=== PATIENT | female | born 1950 | race Caucasian/White ===

== ENCOUNTER 2022-01-30 10:54 | Inpatient (IN) ==
[~2022-01-30 10:54] MED LIST: Naloxone 0.4 MG/ML INJ IVP PRN
[2022-01-30] MEDS ORDERED: Ondansetron 4 MG/2 ML VIAL IVP PRN ×2 (11:16→15:19)
[2022-01-30] MEDS ORDERED: *HR* HYDROmorphone PF 0.5 MG/0.5 ML SYRINGE IVP PRN (11:16)
[2022-01-30] MEDS ORDERED: *HR* FentaNYL (PF) 100 MCG/2 ML VIAL IVP PRN (11:16)
[2022-01-30] MEDS ORDERED: Clindamycin 900 MG/50 ML 900 MG/50 ML IV.SOLN IVPB ONE (11:37)
[2022-01-30] MEDS ORDERED: Ringers Solution, Lactated 1,000 ML IVC SCH ×2 (11:45→15:19)
[2022-01-30] MEDS ORDERED: *HR* Rocuronium Bromide 50 MG/5 ML VIAL ONE (12:29)
[2022-01-30] MEDS ORDERED: *HR* FentaNYL (PF) 100 MCG/2 ML VIAL ONE (12:29)
[2022-01-30] MEDS ORDERED: Ondansetron 4 MG/2 ML VIAL ONE (12:29)
[2022-01-30] MEDS ORDERED: Lidocaine -MPF 2% 2 ML VIAL ONE (12:29)
[2022-01-30] MEDS ORDERED: *HR* Propofol 200 MG/20 ML VIAL IVP ONE (12:30)
[2022-01-30] MEDS ORDERED: Lidocaine HCL 4 ML Topical Solution (Laryng-O-Jet Kit Sterile Pak) TP ONE (12:33)
[2022-01-30] MEDS ORDERED: Ketamine HCL *QUVA* 50mg (1mL) SYRINGE ONE (12:38)
[2022-01-30] MEDS ORDERED: *HR* Metoprolol 5 MG/5 ML VIAL IVP PRN (15:19)
[2022-01-30] MEDS ORDERED: Scopolamine Patch 1.5 MG PATCH.TD72 TD ONE (15:19)
[2022-01-30] MEDS ORDERED: Naloxone 0.4 MG/ML INJ IVP PRN (15:19)
[2022-01-30] MEDS: 0.9 % Sodium Chloride 1,000 ML IVC SCH (16:35)
[2022-01-30] MEDS: Acetaminophen IV 1,000 MG/100 ML BAG IVPB SCH (18:06)
[2022-01-31] MEDS: Acetaminophen IV 1,000 MG/100 ML BAG IVPB SCH ×3 (00:55→13:08)
[2022-01-31 02:23] LABS: Basophils % 0.1 %; Hematocrit 40.2 % (35.3-44.9); Immature Granulocytes % 0.6 % (0-4); Lymphocytes # 0.6 K/mcL (0.6-4.6); Mean Corpuscular HGB Conc 32.3 g/dL (31.6-35.5); Mean Corpuscular Hemoglobin 28.9 pg (28.0-33.3); Mean Corpuscular Volume 89.3 fL (83.0-100.0); Mean Platelet Volume 9.2 fL (9.4-12.4); Monocytes # 0.4 K/mcL (0.0-1.3); Monocytes % 4.6 %; Neutrophils # 7.1 K/mcL (1.6-8.9); Platelet Count 278 K/mcL (140-400); Red Cell Distribution Width 13.1 % (11.5-14.5); Segmented Neutrophils % 87.7 %; White Blood Count 8.1 K/mcL (4.3-11.1)
[2022-01-31 02:38] LABS: BUN/Creatinine Ratio 11 (6-26); Blood Urea Nitrogen 10 mg/dL (8-23); Carbon Dioxide 25 mEq/L (23-29); Chloride 107 mEq/L (98-107); Glucose 129 mg/dL (70-105); Magnesium 1.9 mg/dL (1.6-2.6); Osmolality,Calculated 289 (280-300); Phosphorous 3.5 mg/dL (2.7-4.5); Sodium 139 mEq/L (136-145); eGFR For African Americans > 60 (> 60); eGFR For Non-African Americans > 60 (> 60)
[2022-01-31] MEDS: 0.9 % Sodium Chloride 1,000 ML IVC SCH ×3 (06:08→17:19)
[2022-01-31] MEDS: Pantoprazole 40 MG VIAL IVP SCH (08:07)
[2022-01-31] MEDS ORDERED: Acetaminophen IV 1,000 MG/100 ML BAG IVPB PRN (12:37)
[2022-01-31] MEDS: Gabapentin 300 MG CAPSULE PO SCH ×2 (15:46→21:52)
[2022-01-31] MEDS: *HR* Heparin 5,000 UNIT/ML VIAL SQ SCH (17:37)
[2022-02-01] MEDS: 0.9 % Sodium Chloride 1,000 ML IVC SCH (03:41)
[2022-02-01 05:10] LABS: Basophils # 0.1 K/mcL (0.0-0.2); Eosinophils # 0.1 K/mcL (0.0-0.6); Eosinophils % 1.7 %; Hematocrit 40.3 % (35.3-44.9); Hemoglobin 12.7 g/dL (11.5-15.4); Immature Granulocytes % 0.5 % (0-4); Lymphocytes # 2.5 K/mcL (0.6-4.6); Lymphocytes % 32.3 %; Mean Corpuscular HGB Conc 31.5 g/dL (31.6-35.5); Mean Corpuscular Hemoglobin 29.3 pg (28.0-33.3); Mean Corpuscular Volume 92.9 fL (83.0-100.0); Mean Platelet Volume 9.3 fL (9.4-12.4); Monocytes # 0.7 K/mcL (0.0-1.3); Monocytes % 8.6 %; Neutrophils # 4.4 K/mcL (1.6-8.9); Platelet Count 259 K/mcL (140-400); Red Blood Count 4.34 M/mcL (3.82-4.97); Red Cell Distribution Width 13.2 % (11.5-14.5); Segmented Neutrophils % 55.9 %; White Blood Count 7.8 K/mcL (4.3-11.1)
[2022-02-01 05:16] LABS: Prothrombin Time 11.3 Seconds (9.4-12.1)
[2022-02-01] MEDS: *HR* Heparin 5,000 UNIT/ML VIAL SQ SCH ×2 (05:23→20:50)
[2022-02-01 05:35] LABS: BUN/Creatinine Ratio 11 (6-26); Blood Urea Nitrogen 10 mg/dL (8-23); Calcium 8.9 mg/dL (8.6-10.3); Carbon Dioxide 26 mEq/L (23-29); Chloride 107 mEq/L (98-107); Glucose 86 mg/dL (70-105); Magnesium 1.9 mg/dL (1.6-2.6); Osmolality,Calculated 286 (280-300); Phosphorous 2.5 mg/dL (2.7-4.5); Potassium 3.3 mEq/L (3.5-5.1); Sodium 139 mEq/L (136-145); eGFR For African Americans > 60 (> 60); eGFR For Non-African Americans > 60 (> 60)
[2022-02-01] MEDS: Pantoprazole 40 MG VIAL IVP SCH (08:34)
[2022-02-01] MEDS: Gabapentin 300 MG CAPSULE PO SCH ×2 (08:34→17:15)
[2022-02-01] MEDS ORDERED: Potassium Phosphate 44 MEQ in 0.9 % Sodium Chloride 250 ML IVPB ONE (08:57)
[2022-02-01] MEDS: D5% in 0.45% NACL w KCl 20 MEQ/1,000 ML MLS IVC SCH ×2 (09:32→20:50)
[2022-02-01] MEDS ORDERED: Lidocaine -MPF 2% 2 ML VIAL ONE (14:03)
[2022-02-01] MEDS ORDERED: *HR* Propofol 200 MG/20 ML VIAL IVP ONE (14:03)
[2022-02-01] MEDS ORDERED: *HR* FentaNYL (PF) 100 MCG/2 ML VIAL ONE ×2 (14:03→16:09)
[2022-02-01] MEDS ORDERED: *HR* Rocuronium Bromide 50 MG/5 ML VIAL ONE (14:03)
[2022-02-01] MEDS ORDERED: *HR* Succinylcholine 200 MG/10 ML VIAL IVP ONE (14:25)
[2022-02-01] MEDS ORDERED: *HR* Midazolam HCl 2 MG/2 ML VIAL ONE (15:20)
[2022-02-01] MEDS ORDERED: Ondansetron 4 MG/2 ML VIAL ONE (15:42)
[2022-02-01] MEDS ORDERED: Clindamycin 900 MG/50 ML 900 MG/50 ML IV.SOLN IVPB ONE ×2 (15:48→15:55)
[2022-02-01] MEDS ORDERED: *HR* HYDROMORPHONE 2 MG/ML VIAL ONE (16:07)
[2022-02-01] MEDS ORDERED: Famotidine 20 MG/2 ML VIAL ONE (16:26)
[2022-02-01] MEDS ORDERED: Acetaminophen IV 1,000 MG/100 ML BAG IVPB ONE (16:27)
[2022-02-01] MEDS ORDERED: Sugammadex Sodium 200 MG/2 ML VIAL IV ONE (17:55)
[2022-02-01] MEDS ORDERED: Promethazine 6.25 MG in Water for inj. (sterile) 20 ML IVPB PRN (18:17)
[2022-02-01] MEDS ORDERED: *HR* HYDROmorphone PF 0.5 MG/0.5 ML SYRINGE IVP PRN (18:17)
[2022-02-01] MEDS ORDERED: *HR* Labetalol 20 MG/4 ML SYRINGE IVP PRN (18:17)
[2022-02-01] MEDS ORDERED: Ketorolac 30 MG/ML VIAL IVP PRN (18:17)
[2022-02-01] MEDS ORDERED: *HR* HYDROmorphone 2 MG TABLET PO PRN (18:17)
[2022-02-01] MEDS ORDERED: Scopolamine Patch 1.5 MG PATCH.TD72 TD ONE ×2 (18:17→19:46)
[2022-02-01] MEDS ORDERED: *HR* Dextrose 50 % in Water (Syg) 50 ML SYRINGE IVP PRN (19:46)
[2022-02-01] MEDS ORDERED: D5% in Water 1,000 ML IVC PRN (19:46)
[2022-02-01] MEDS ORDERED: *HR* Metoprolol 5 MG/5 ML VIAL IVP PRN (19:46)
[2022-02-01] MEDS ORDERED: Naloxone 0.4 MG/ML INJ IVP PRN ×2 (19:46)
[2022-02-01] MEDS ORDERED: Chloraseptic Spray 177 ML BOTTLE MM PRN (19:46)
[2022-02-01] MEDS ORDERED: Dextrose Gel 15 GM/37.5 ML TUBE PO PRN ×2 (19:46)
[2022-02-01] MEDS ORDERED: Ondansetron 4 MG/2 ML VIAL IVP PRN (19:46)
[2022-02-01] MEDS ORDERED: 0.9 % Sodium Chloride 1,000 ML ONE (21:41)
[2022-02-01] MEDS: Morphine PCA 30 MG/ 30 ML 30 ML PCA.VIAL IVC PRN (21:42)
[2022-02-01] MEDS ORDERED: 0.9 % Sodium Chloride 1,000 ML IVC SCH (22:15)
[2022-02-02] MEDS: Acetaminophen IV 1,000 MG/100 ML BAG IVPB SCH ×4 (00:16→17:46)
[2022-02-02] MEDS: Ketorolac 30 MG/ML VIAL IVP SCH ×4 (00:17→17:46)
[2022-02-02 02:15] LABS: Basophils % 0.1 %; Hematocrit 40.4 % (35.3-44.9); Hemoglobin 13.3 g/dL (11.5-15.4); Immature Granulocytes % 0.4 % (0-4); Lymphocytes # 0.5 K/mcL (0.6-4.6); Lymphocytes % 4.3 %; Mean Corpuscular HGB Conc 32.9 g/dL (31.6-35.5); Mean Corpuscular Hemoglobin 29.6 pg (28.0-33.3); Mean Corpuscular Volume 89.8 fL (83.0-100.0); Mean Platelet Volume 9.5 fL (9.4-12.4); Monocytes # 0.9 K/mcL (0.0-1.3); Monocytes % 7.2 %; Platelet Count 274 K/mcL (140-400); Red Cell Distribution Width 13.2 % (11.5-14.5)
[2022-02-02 02:16] LABS: Neutrophils # 10.9 K/mcL (1.6-8.9); White Blood Count 12.4 K/mcL (4.3-11.1)
[2022-02-02 02:42] LABS: BUN/Creatinine Ratio 14 (6-26); Blood Urea Nitrogen 10 mg/dL (8-23); Calcium 8.7 mg/dL (8.6-10.3); Carbon Dioxide 22 mEq/L (23-29); Chloride 103 mEq/L (98-107); Glucose 121 mg/dL (70-105); Magnesium 1.6 mg/dL (1.6-2.6); Osmolality,Calculated 280 (280-300); Phosphorous 4.5 mg/dL (2.7-4.5); Potassium 3.7 mEq/L (3.5-5.1); Sodium 135 mEq/L (136-145); eGFR For African Americans > 60 (> 60); eGFR For Non-African Americans > 60 (> 60)
[2022-02-02] MEDS: Pantoprazole 40 MG VIAL IVP SCH (07:55)
[2022-02-02] MEDS: D5% in 0.9% NACL w KCl 20 MEQ/1,000 ML MLS IVC SCH (12:18)
[2022-02-02] MEDS: Morphine PCA 30 MG/ 30 ML 30 ML PCA.VIAL IVC PRN (19:09)
[2022-02-03 01:44] LABS: Basophils # 0.1 K/mcL (0.0-0.2); Basophils % 0.6 %; Eosinophils # 0.3 K/mcL (0.0-0.6); Eosinophils % 2.6 %; Hematocrit 38.7 % (35.3-44.9); Hemoglobin 12.2 g/dL (11.5-15.4); Immature Granulocytes % 0.3 % (0-4); Lymphocytes # 1.4 K/mcL (0.6-4.6); Lymphocytes % 14.7 %; Mean Corpuscular HGB Conc 31.5 g/dL (31.6-35.5); Mean Corpuscular Volume 91.9 fL (83.0-100.0); Mean Platelet Volume 9.1 fL (9.4-12.4); Monocytes # 0.9 K/mcL (0.0-1.3); Monocytes % 9.2 %; Platelet Count 234 K/mcL (140-400); Red Blood Count 4.21 M/mcL (3.82-4.97); Red Cell Distribution Width 13.6 % (11.5-14.5); Segmented Neutrophils % 72.6 %; White Blood Count 9.6 K/mcL (4.3-11.1)
[2022-02-03] MEDS: Ketorolac 30 MG/ML VIAL IVP SCH ×5 (01:59→23:37)
[2022-02-03] MEDS: D5% in 0.9% NACL w KCl 20 MEQ/1,000 ML MLS IVC SCH (02:00)
[2022-02-03] MEDS: Acetaminophen IV 1,000 MG/100 ML BAG IVPB SCH ×5 (02:00→23:36)
[2022-02-03 02:03] LABS: BUN/Creatinine Ratio 14 (6-26); Blood Urea Nitrogen 15 mg/dL (8-23); Calcium 8.8 mg/dL (8.6-10.3); Carbon Dioxide 28 mEq/L (23-29); Chloride 105 mEq/L (98-107); Glucose 111 mg/dL (70-105); Magnesium 1.8 mg/dL (1.6-2.6); Osmolality,Calculated 288 (280-300); Phosphorous 2.3 mg/dL (2.7-4.5); Potassium 3.6 mEq/L (3.5-5.1); Sodium 138 mEq/L (136-145); eGFR For African Americans > 60 (> 60); eGFR For Non-African Americans 50 (> 60)
[2022-02-03] MEDS: *HR* Heparin 5,000 UNIT/ML VIAL SQ SCH ×2 (07:40→18:28)
[2022-02-03] MEDS: Pantoprazole 40 MG VIAL IVP SCH (09:05)
[2022-02-03] MEDS ORDERED: Sodium Phosphate 30 MMOL in 0.9 % Sodium Chloride 100 ML IVPB ONE (13:24)
[2022-02-04 03:58] LABS: Basophils # 0.1 K/mcL (0.0-0.2); Basophils % 0.5 %; Eosinophils # 0.4 K/mcL (0.0-0.6); Hematocrit 38.2 % (35.3-44.9); Hemoglobin 12.4 g/dL (11.5-15.4); Immature Granulocytes % 0.4 % (0-4); Lymphocytes # 1.5 K/mcL (0.6-4.6); Lymphocytes % 14.4 %; Mean Corpuscular HGB Conc 32.5 g/dL (31.6-35.5); Mean Corpuscular Hemoglobin 29.4 pg (28.0-33.3); Mean Corpuscular Volume 90.5 fL (83.0-100.0); Mean Platelet Volume 9.5 fL (9.4-12.4); Monocytes # 0.8 K/mcL (0.0-1.3); Monocytes % 8.2 %; Neutrophils # 7.4 K/mcL (1.6-8.9); Platelet Count 242 K/mcL (140-400); Red Blood Count 4.22 M/mcL (3.82-4.97); Red Cell Distribution Width 13.4 % (11.5-14.5); Segmented Neutrophils % 72.5 %; White Blood Count 10.2 K/mcL (4.3-11.1)
[2022-02-04 04:23] LABS: BUN/Creatinine Ratio 13 (6-26); Blood Urea Nitrogen 10 mg/dL (8-23); Calcium 8.6 mg/dL (8.6-10.3); Carbon Dioxide 26 mEq/L (23-29); Chloride 104 mEq/L (98-107); Glucose 86 mg/dL (70-105); Osmolality,Calculated 282 (280-300); Potassium 3.2 mEq/L (3.5-5.1); Sodium 137 mEq/L (136-145); eGFR For African Americans > 60 (> 60); eGFR For Non-African Americans > 60 (> 60)
[2022-02-04] MEDS: Ketorolac 30 MG/ML VIAL IVP SCH ×2 (05:29→13:29)
[2022-02-04] MEDS: Acetaminophen IV 1,000 MG/100 ML BAG IVPB SCH ×4 (05:30→23:34)
[2022-02-04] MEDS: *HR* Heparin 5,000 UNIT/ML VIAL SQ SCH ×2 (05:30→17:18)
[2022-02-04 07:50] LABS: Phosphorous 3.6 mg/dL (2.7-4.5)
[2022-02-04] MEDS: Pantoprazole 40 MG VIAL IVP SCH (08:28)
[2022-02-04] MEDS ORDERED: D5% in 0.9% NACL w KCl 20 MEQ/1,000 ML MLS IVC SCH (08:42)
[2022-02-04] MEDS: Gabapentin 300 MG CAPSULE PO SCH ×3 (09:39→20:40)
[2022-02-04] MEDS: lisinopriL 5 MG TABLET PO SCH ×2 (09:39→20:40)
[2022-02-04] MEDS: Ibuprofen 800 MG TABLET PO SCH ×2 (17:18→23:34)
[2022-02-04] MEDS ORDERED: *HR* LORazepam 2 MG/ML VIAL IVP PRN (18:26)
[2022-02-05 01:52] LABS: Basophils % 0.4 %; Eosinophils # 0.6 K/mcL (0.0-0.6); Eosinophils % 5.7 %; Hematocrit 37.9 % (35.3-44.9); Hemoglobin 11.9 g/dL (11.5-15.4); Immature Granulocytes % 0.9 % (0-4); Lymphocytes # 1.6 K/mcL (0.6-4.6); Lymphocytes % 16.3 %; Mean Corpuscular HGB Conc 31.4 g/dL (31.6-35.5); Mean Corpuscular Hemoglobin 28.7 pg (28.0-33.3); Mean Corpuscular Volume 91.3 fL (83.0-100.0); Mean Platelet Volume 9.4 fL (9.4-12.4); Monocytes # 0.9 K/mcL (0.0-1.3); Monocytes % 9.1 %; Neutrophils # 6.7 K/mcL (1.6-8.9); Platelet Count 272 K/mcL (140-400); Red Blood Count 4.15 M/mcL (3.82-4.97); Red Cell Distribution Width 13.5 % (11.5-14.5); Segmented Neutrophils % 67.6 %; White Blood Count 9.8 K/mcL (4.3-11.1)
[2022-02-05] MEDS: Acetaminophen IV 1,000 MG/100 ML BAG IVPB SCH (06:16)
[2022-02-05] MEDS: *HR* Heparin 5,000 UNIT/ML VIAL SQ SCH (06:16)
[2022-02-05 07:34] VITALS: BP 136/84; PULSE 81; TEMP 98.4; O2SAT 97
[2022-02-05] MEDS: Pantoprazole 40 MG VIAL IVP SCH (08:07)
[2022-02-05] MEDS: Gabapentin 300 MG CAPSULE PO SCH (08:07)
[2022-02-05] MEDS: lisinopriL 5 MG TABLET PO SCH (08:07)
[2022-02-05] MEDS: Ibuprofen 800 MG TABLET PO SCH (08:07)
== END 2022-02-05 10:23 | disposition home or self-care (01) | DRG 331 ==
LOC: SAMDAY 10:54 → EDSTATUS 12:30 → 3ANU 14:55
PROVIDERS: ADMIT Surgery; ATTEND Surgery

== ENCOUNTER 2022-06-17 08:36 | Inpatient (IN) ==
[~2022-06-17 08:36] MED LIST changes: +Acetaminophen IV 1,000 MG/100 ML BAG IVPB ONE; -Naloxone 0.4 MG/ML INJ IVP PRN
[2022-06-17] MEDS ORDERED: Clindamycin 900 MG/50 ML 900 MG/50 ML IV.SOLN IVPB ONE (09:01)
[2022-06-17] MEDS ORDERED: Albuterol 2.5 MG/3 ML NEBULIZER IH PRN (09:07)
[2022-06-17] MEDS ORDERED: Ondansetron 4 MG/2 ML VIAL IVP PRN ×2 (09:07→16:25)
[2022-06-17] MEDS ORDERED: Ringers Solution, Lactated 1,000 ML IVC SCH (09:15)
[2022-06-17] MEDS ORDERED: Lidocaine -MPF 2% 2 ML VIAL ONE (10:01)
[2022-06-17] MEDS ORDERED: *HR* Rocuronium Bromide 50 MG/5 ML VIAL ONE ×2 (10:01→11:43)
[2022-06-17] MEDS ORDERED: *HR* Propofol 200 MG/20 ML VIAL IVP ONE (10:01)
[2022-06-17] MEDS ORDERED: Sugammadex Sodium 200 MG/2 ML VIAL IV ONE (10:01)
[2022-06-17] MEDS ORDERED: *HR* FentaNYL (PF) 100 MCG/2 ML VIAL ONE ×2 (10:01→11:46)
[2022-06-17] MEDS ORDERED: Ondansetron 4 MG/2 ML VIAL ONE (10:01)
[2022-06-17] MEDS ORDERED: *HR* HYDROMORPHONE 2 MG/ML VIAL ONE (12:32)
[2022-06-17] MEDS ORDERED: Ketamine HCL *QUVA* 50mg (1mL) SYRINGE ONE (12:32)
[2022-06-17] MEDS: *HR* HYDROmorphone PF 0.5 MG/0.5 ML SYRINGE IVP PRN ×4 (14:40→15:25)
[2022-06-17] MEDS ORDERED: methocarbamoL 500 MG TABLET PO PRN (16:25)
[2022-06-17] MEDS ORDERED: *HR* Metoprolol 5 MG/5 ML VIAL IVP PRN (16:25)
[2022-06-17] MEDS: 0.9 % Sodium Chloride 1,000 ML IVC SCH (16:41)
[2022-06-17] MEDS: Ketorolac 30 MG/ML VIAL IVP SCH ×2 (17:27→23:36)
[2022-06-17] MEDS: Clindamycin 900 MG/50 ML 900 MG/50 ML IV.SOLN IVPB SCH (18:37)
[2022-06-17] MEDS: lisinopriL 5 MG TABLET PO SCH (20:36)
[2022-06-17] MEDS: Acetaminophen IV 1,000 MG/100 ML BAG IVPB SCH (20:41)
[2022-06-18] MEDS: Acetaminophen IV 1,000 MG/100 ML BAG IVPB SCH ×2 (01:10→06:07)
[2022-06-18] MEDS: Clindamycin 900 MG/50 ML 900 MG/50 ML IV.SOLN IVPB SCH ×2 (02:19→09:05)
[2022-06-18] MEDS: 0.9 % Sodium Chloride 1,000 ML IVC SCH (04:36)
[2022-06-18 05:07] LABS: Basophils # 0.1 K/mcL (0.0-0.2); Basophils % 0.5 %; Eosinophils # 0.1 K/mcL (0.0-0.6); Eosinophils % 0.5 %; Hematocrit 37.6 % (35.3-44.9); Hemoglobin 11.7 g/dL (11.5-15.4); Immature Granulocytes % 0.3 % (0-4); Lymphocytes # 0.6 K/mcL (0.6-4.6); Lymphocytes % 4.8 %; Mean Corpuscular HGB Conc 31.1 g/dL (31.6-35.5); Mean Corpuscular Hemoglobin 27.7 pg (28.0-33.3); Mean Corpuscular Volume 88.9 fL (83.0-100.0); Mean Platelet Volume 9.4 fL (9.4-12.4); Monocytes # 1.3 K/mcL (0.0-1.3); Monocytes % 11.2 %; Neutrophils # 9.5 K/mcL (1.6-8.9); Platelet Count 280 K/mcL (140-400); Red Blood Count 4.23 M/mcL (3.82-4.97); Red Cell Distribution Width 14.8 % (11.5-14.5); Segmented Neutrophils % 82.7 %; White Blood Count 11.5 K/mcL (4.3-11.1)
[2022-06-18 05:24] LABS: Calcium 8.4 mg/dL (8.6-10.3); Magnesium 1.7 mg/dL (1.6-2.6); Phosphorous 4.3 mg/dL (2.7-4.5); Potassium 4.4 mEq/L (3.5-5.1)
[2022-06-18] MEDS: Ketorolac 30 MG/ML VIAL IVP SCH (06:10)
[2022-06-18] MEDS ORDERED: Fluticasone Propionate Nasal 50 MCG/SPRAY BOTTLE NS PRN (09:00)
[2022-06-18] MEDS ORDERED: Ibuprofen 800 MG TABLET PO ONE (09:01)
[2022-06-18] MEDS ORDERED: *HR* OxyCODONE Immed Rel 5 MG TABLET PO PRN (09:01)
[2022-06-18] MEDS: lisinopriL 5 MG TABLET PO SCH (09:04)
[2022-06-18 11:04] VITALS: BP 117/75; PULSE 85; TEMP 98.2; O2SAT 94
[2022-06-18] MEDS ORDERED: Acetaminophen 325 MG TABLET PO SCH (12:00)
[2022-06-18] MEDS ORDERED: *HR* Heparin 5,000 UNIT/ML VIAL SQ SCH (18:00)
== END 2022-06-18 13:10 | disposition home or self-care (01) | DRG 355 ==
LOC: SAMDAY 08:36 → 3ANU 16:16
PROVIDERS: ADMIT Surgery; ATTEND Surgery